=== PATIENT | female | born 1995 ===

== ENCOUNTER 2025-03-15 09:25 | Emergency (ER) | payer MEDICARE, MEDICAID, SELFPAY ==
[2025-03-15 09:43] VITALS: BP 145/67; PULSE 74; RESP 18; TEMP 36.6; O2SAT 100; BMI 38.7
[2025-03-15 10:16] LABS: MANUAL DIFF FLAG NO
[2025-03-15 10:22] LABS: Hematocrit 36.9 % (37.0-47.0); Hemoglobin 12.3 g/dl (12.0-16.0); Imm Gran Abs Auto 0.02 X10*3/uL (0.00-0.03); Imm Gran Pct Auto 0.3 % (0.0-0.4); Lymphocytes Absolute Auto 2.1 X10*3/uL (1.2-4.9); Mean Corpuscular HGB Conc 33.3 g/dl (31.0-35.0); Mean Corpuscular Hemoglobin 28.5 pg (27.0-33.0); Mean Corpuscular Volume 85.4 fL (80.0-98.0); NRBC Abs Auto 0.000 X10*3/uL (0.0-0.012); NRBC Pct Auto 0.0 /100WBC (0.0-0.2); Platelet Count 379 X10*3/uL (160-400); Red Blood Count 4.32 X10*6/uL (4.20-5.50); White Blood Count 7.8 X10*3/uL (4.8-10.8)
[2025-03-15 10:44] LABS: Anion Gap 12 (12-20); Blood Urea Nitrogen 10 mg/dL (9-16); Calcium 8.7 mg/dL (8.4-10.2); Carbon Dioxide 23 mmol/L (22-29); Chloride 108 mmol/L (96-108); Creatinine Clr Calc Pharmacy 158.4; Estimated Glomerular Filt Rate > 60; Potassium 3.8 mmol/L (3.3-5.1); Sodium 139 mmol/L (135-145)
--- OUTSIDE RECORDS SUMMARY | 2025-03-15 20:54 | XMS_ITS | Clinical Summary ---
Author Organization [facility] Address [address] [place] [address] Phone Care Team Providers Care Livestock Caretaker Name Role Phone Lindsey Jessica BRACE MAKER Primary Care Provide r Unavailable Allergies No known active allergies Medications cholecalciferol (VITAMIN D-3) 1,250 mcg (50,000 unit) capsule Take 1 Capsule by mouth once a week. 10/07/2022 Active escitalopram (LEXAPRO) 10 mg tablet Take 1 Tablet by mouth daily. Active WHEAT DEXTRIN ORAL Take 4 g by mouth daily. 02/24/2023 Active Immunizations Immunization Administration Dates Next Due Moderna SARS-CoV-2 COVID-19, mRNA, LNP-S, preservative free 05/01/2021,04/03/2021 Social History Tobacco Use Types Packs/Day Years Used Date Smoking Tobacco: Never Smokeless Tobacco: Never Alcohol Use Standard Drinks/Week Comments Never 0 (1 standard drink = 0.6 oz pur e alcohol) Comments Unknown Sex and Gender Information Value Date Recorded Sex Assigned at Not on file Legal Sex Female 11:14 PM EST Gender Identity Not on file Sexual Orientation Not on file Obstetrics History Para Term AB IAB SAB Ectopic Multiple Livin g Live Births 0 0 0 0 0 0 0 0 Comments Per Eileen Coyne. Last Filed Vital Signs Vital Sign Reading Time Taken Comments Blood Pressure 120/73 07/21/2023 9:11 AM EST Pulse 54 07/21/2023 9:11 AM EST Temperature - - Respiratory Rate - - Oxygen Saturation - - Inhaled Oxygen Concentration - - Weight 121 kg (267 lb) 08/27/2023 9:18 AM EDT Height 175.3 cm (5' 9 ) 07/21/2023 9:11 AM EST Body Mass Index 39.43 07/21/2023 9:11 AM EST Plan of Treatment Health Maintenance Due Date Last Done Comments DTaP,Tdap,and Td Vaccines (1 - Tdap) 10/31/2015 Hepatitis B Vaccines (1 of 3 - 19+ 3-dose series) 10/31/2015 Cervical Cancer Screening: P ap Smear 2017 HIV Screening 06/24/2023 Hepatitis C Screening 06/24/2023 Medicare Annual Wellness Visit 06/24/2023 Social Influencers of Health Screening 06/24/2023 HPV Vaccines (1 - 3-dose SCD M series) 10/31/2023 Depression Screening 05/26/2024 COVID-19 Vaccine (3 - 2024-2 6 season) 2025 05/01/2021, 04/03/2021 Influenza Vaccine (#1) 2025 Cholesterol Screening (Lipid Panel) 09/27/2027 09/26/2022 RSV Immunization Adult Patients (1 - 1-dose 75+ series) 10/31/2071 HIB Vaccines Aged Out No longer eligi ble based on patient's age to complete this topic Hepatitis A Vaccines Aged Out No long er eligible based on patient's age to complete this topic IPV Vaccines Aged Out No longer eligi ble based on patient's age to complete this topic MMR Vaccines Aged Out No longer eligi ble based on patient's age to complete this topic Meningococcal ACWY Vaccine Aged Out N o longer eligible based on patient's age to complete this topic Meningococcal B Vaccine Aged Out No l onger eligible based on patient's age to complete this topic Pneumococcal Vaccine: Pediatrics (0 to 5 Years) and At-Risk Patients (6 to 49 Years) Aged Out No longer eligible b ased on patient's age to complete this topic RSV Immunization Patients Under 20 months Aged Out No longer eligible b ased on patient's age to complete this topic Varicella Vaccines Aged Out No longer eligible based on patient's age to complete this topic Procedures Procedure Name Priority Date/Time Associated Diagnosis Comments LIPID PANEL Routine 09/26/2022 from Last 3 Months or Most Recently Relevant to Health Maintenance Results * Lipid panel (09/26/2022) LDL/HDL Ratio 3 0 - 4 Triglycerides 148 0 - 150 mg/dL Cholesterol 160 0 - 200 mg/dL HDL 57 >=40 mg/dL LDL Cholesterol 74 0 - 100 mg/dL Blood Venous blood specimen / Unknown Historical Provider LAB BLOOD ORDERABLES Justina l Result from Last 3 Months or Most Recently Relevant to Health Maintenance Insurance MEDICARE [place]ICAID - [place] Advance Directives Documents on File Type Date Recorded Patient Outside Sales Engineer Expl anation Health Care Decision (hx) 02/28/2023 HE ALTH CARE PROXY Care Teams Livestock Caretaker Relationship Specialty Start Date End Date Lindsey Jessica FNP [address] [place] [address] PCP - General 05/31/22
--- OUTSIDE RECORDS SUMMARY | 2025-03-15 20:54 | XMS_ITS | Data Portability ---
Author Organization [place] - [facility], [address] Address [address] [place] [address] Assessment No assessment recorded. Plan of Treatment Reminders Order Date Submit Date Provider Last Modified By Organization Details Last Modified Time Details Appointments None record ed. Lab None record ed. Referral None record ed. Procedures None record ed. Surgeries None record ed. Imaging None record ed. Medication Orders None record ed. Patient TargetsNo targets recorded. Patient InstructionsNo instructions recorded. Reason for Referral None Reported. Procedures Surgical History Date Name Laterality Status Provider Name and Address Organization Details Recorded Time OC- Physical completed POOJA N[facility] 08/21/2022 17:14:19 Imaging Results None recorded. Procedure Notes None recorded. Medical Equipment None Reported. Medications Name Sig Start Date Stop Date Status Note LastModified by Organization Details LastModified Time escitalopram 10 mg tablet TAKE 1 TABLET BY MOUTH EVERY DAY active Not Available Not Available No t Available Vitals None Recorded Social History None recorded. Functional Status None recorded. Mental Status None recorded. Family History Nothing Reported. Medical History No medical history recorded. Gynecological HistoryNo gynecological history recorded. Obstetrics History GPAL:G 0 P 0 0 0 0 Past Encounters Encounter ID Performer Location Encounter Start Date Encounter Closed Date Diagnosis/Indication Diagnosis SNOMED-CT Code Diagnosis ICD10 Code Diagnosis IMO Codes Diagnosis Note [id number] [address] [place] [address] 07/05/2021 18:10:44 07/05/2021 18:10:54 [id number] [place] [address] 05/24/2019 17:41:23 05/24/2019 18:40:07 [id number] [address] [facility] [address] [facility] [place] [address] 01/24/2021 14:16:13 01/24/2021 16:51:26 [id number] [facility] [address] [place] [address] 10/24/2021 18:51:03 10/24/2021 19:53:33 [id number] MAICO MARKS [address] [address] [place] [address] 08/21/2022 16:17:56 08/21/2022 18:01:08 History and physical examination, pre-employment 336307194 Z02.1 No medical contraindi cations for employment . Needs to wear hearing aides Health Concerns Section Related Observation LastModified by Organization Detai ls LastModified Time None Recorded Concern Status LastModified by Organization Details LastModified Time None Recorded Advance Directives Directive None Recorded Payers Insurance Date Sequence Insurance Name Policy Number Policy Yang Covered Member ID Yang Member ID Guarantor Name 08/21/2022 OC-ESCREEN [employer] ADH Na lior Jeffrey onado 08/21/2022 1 [facility] (MEDICAID HMO) [id number] Heidi Mccarty [id number] Heidi Jeffrey onado OBGyn Episode No OBEpisode recorded.
--- OUTSIDE RECORDS SUMMARY | 2025-03-15 20:54 | XMS_ITS | Clinical Summary ---
Author Organization [facility] Address [address] [place] [address] Care Team Providers Care Victim Advocate Name Role Phone Harmony Samayoa NP Primary Care Provider Source Comments PLEASE NOTE, if this patient is a minor, it may be UNLAWFUL to discuss sensitive information that is contained in these records (such as FAMILY PLANNING, MENTAL HEALTH or SUBSTANCE ABUSE) with the minor patient's parent or other person without the patient's specific authorization.[facility] Allergies Active Allergy Reactions Criticality Noted Date Comments Phentermine 03/03/2025 Medications divalproex (DEPAKOTE ER) 500 mg 24 hr tabletIndication s:Migraine headaches,Histor y of oppositional defiant disorder Take 1 Tablet by mouth once daily. 90 Tablet 1 025 Active norethindrone, contraceptive, (MICRONOR) 0.35 mg tabletIndication s:Encounter for surveillance of contraceptive pills Take 1 Tablet by mouth once daily. 90 Tablet 1 025 Active alcohol swabsIndications :Morbid obesity with BMI of 50.0-59.9, adult Use weekly. 30 Each 025 Active tirzepatide, weight loss, (ZEPBOUND) 2.5 mg/0.5 mL pnijIndications: Morbid obesity with BMI of 50.0-59.9, adult INJECT 2.5 MG SUBCUTANEOUSLY WEEKLY 2 mL 025 Active escitalopram (LEXAPRO) 10 mg tabletIndication s:Anxiety and depression Take 1 Tablet by mouth once daily 90 Tablet 1 022 2022 Discontinued(I neffective therapy) alcohol swabsIndications :Morbid obesity with BMI of 50.0-59.9, adult Use weekly. 30 Each 025 2024 Discontinued(R eorder (E-Cancel Not Sent)) phentermine (IONAMIN) 15 mg capsule Take 1 Capsule by mouth every morning. Max Daily Amount: 15 mg 30 Capsule 025 2024 Discontinued(T herapy completed/Not needed) tirzepatide, weight loss, (ZEPBOUND) 2.5 mg/0.5 mL pnijIndications: Morbid obesity with BMI of 50.0-59.9, adult Inject 2.5 mg into the skin once a week. 2 mL 025 2024 Discontinued Active Problems Problem Noted Date Diagnosed Date Chronic migraine with aura 01/18/2025 History of magnetic resonance imaging of brain 0 11/02/2024 Overview (11/02/2024): 11/02/24 Rayus Impression 1.No acute infarction, parenchymal signal abnormality, intracranial hemorrhage, or mass effect. 2.Nonspecific foci of mineralization along the falx without associated mass effect. Recommend further evaluation with contrast-enhanced brain MRI to assess for underlying meningioma. Morbid obesity with BMI of 50.0-59.9, adult 09/2022 Overview (07/01/2022): 07/01/22: Pt seen Hermes Weeks MD- discussed sleeve gastrectomy , referral placed to weight loss program and then will return. LAZARO placed. 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 Qualifies for hearing aides per pt. Poor vision 08/03/2020 Overview (10/29/2024): 10/26/24: Eye & Lasik No signs of disc edema to suggest papilledema. Congenital nuclear cataract . RTC in 1 year Chronic nonintractable headache 09/01/2018 Resolved Problems Problem Noted Date Diagnosed Date Resolved Date Immune to varicella 09/17/2018 08/08/19 21 Overview (09/17/2018): Date:09/01/2018 VARICELLA IGG ANTIBODY POSITIVE POSITIVE VARZ QUANT >165 INDEX 3167.0 Comment: >165 Index is considered to be consistent with Immunity. Overweight 09/16/2018 03/03/2025 Episode of recurrent major d epressive disorder 09/16/2018 08/07/2020 Acne vulgaris 09/16/2018 08/07/2020 Encounters Date Type Department Care Team Description 03/03/2025 3:00 PM EDT Telemedicine Visit [place] [address] [address] [place] [address] Harmony Samayoa NP 02/02/2025 2:40 PM EDT Telemedicine Visit [address] [address] Harmony Samayoa NP 01/26/2025 11:40 AM EDT Telemedicine Visit [address] [address] Harmony Samayoa NP 01/26/2025 Interim Notes [address] [address] Marjorie Ulrich 01/26/2025 Results Follow-Up [address] [address] Harmony Samayoa NP 01/18/2025 2:40 PM EDT Telemedicine Visit [address] [address] Harmony Samayoa NP from Last 3 Months Immunizations Immunization Administration Dates Next Due DTAP (Infanrix) 05/26/1998, 8,09/13/1997,01/20 Diphtheria, pertussis, tetan us, hepatitis B, Haemophilus Influenza Type b, (Pentavalent) - Non US 02/01/1998,11/21/1997,09/13/1997,01/20 Flu, Preservative Free 08/07/2020 HEP A, PED/ADOL, HISTORICAL 08/18/2012 HEP B, PED/ADOL (QHICWYD-Z-JCUZ/RECOMBIVAX-PEDS) 11/21/1997,09/13/1997,01/20/1997,11/29 HPV 9 (Gardasil) 08/07/2020,09/01/2018 HPV, QUADRIVALENT 04/22/2008,01/20/2008,11/20/19 08 INFLUENZA, SEASONAL, INJECTABLE 06/25/19 20,02/03/2014,03/30/2013,06/11 IPV (IPOL) 04/20/2008, 8,09/13/1997,01/20 Influenza, Whole 04/20/2008 MENINGOCOCCAL ACWY, UNSPECIFIED 02/03/2014,11/19 MMR (MMR II/Priorix) 04/20/2000,02/01/1998,10/30 Moderna COVID-19 Vaccine, re d cap blue label, 12+ Primary Series 05/01/2021,04/03/2021 TDAP 11/08/2019, 9,09/07/2014,10/15,11/20/2007 Varicella (Varivax), Live Vaccine 09/01/2018,,06/01/1998 Social History Tobacco Use Types Packs/Day Years Used Date Smoking Tobacco: Never Smokeless Tobacco: Never Tobacco Cessation:Counseling Given: Not Answered Alcohol Use Standard Drinks/Week Comments Yes 0 (1 standard drink = 0.6 oz pur e alcohol) Occasional Social Connections Answer Date Recorded Connectedness 0 02/11/2022 Financial Resource Strain Answer Date R ecorded Financial Resource Strain 0 2021 Stress Answer Date Recorded Stress 0 02/11/2022 Physical Activity Answer Date Recorded Physical Activity 0 01/16/2019 Food Insecurity Answer Date Recorded Food 0 02/11/2022 Transportation Needs Answer Date Record ed Transportation 0 02/11/2022 Housing Stability Answer Date Recorded Housing 0 02/11/2022 Safety and Environment Answer Date Remy rded How often does anyone, inclu ding family and friends, physically hurt you? 1 08/26/2024 Utilities Answer Date Recorded Utilities 0 02/11/2022 Employment Answer Date Recorded Employment 0 01/16/2019 Comments No Sex and Gender Information Value Date Recorded Sex Assigned at Female 09/01/2018 10:49 AM PDT Legal Sex Female 11:36 AM PDT Gender Identity Female 09/01/2018 10:49 AM PDT Sexual Orientation Straight 09/01/2018 10 :49 AM PDT Last Filed Vital Signs Vital Sign Reading Time Taken Comments Blood Pressure 118/60 11/04/2024 11:25 AM EDT Pulse 68 11/04/2024 11:25 AM EDT Temperature 36.2 C (97.1 F) 11/04/2024 11:25 AM EDT Respiratory Rate 18 11/04/2024 11:2 5 AM EDT Oxygen Saturation 99% 11/04/2024 11: 25 AM EDT Inhaled Oxygen Concentration - - Weight 115.5 kg (254 lb 9.6 oz) 025 11:25 AM EDT Height 165.1 cm (5' 5 ) 10/22/2024 10:0 8 AM EDT Body Mass Index 42.37 10/22/2024 10:08 AM EDT Plan of Treatment Upcoming Encounters Date Type Department Care Team (Late st Contact Info) Description 04/25/2025 1:20 PM EST [facility] [place] [address] [place] [address] Harmony Samayoa, [facility] [address] [place] [address] Health Maintenance Due Date Last Done Comments HPV Screening (self-collect) 1996 HPV Screening 1996 Medicare Annual Wellness Visit 2014 [id number] ( season) 2025 021, 04/03/2021 Imm-Influenza (#1) 2025 08/07/2020, 0 06/25/2019, 02/03/2014, Additional history exists Depression Monitoring 05/04/2025 02/02/2025 , 08/26/2024, 06/23/2024, Additional history exists Anxiety Screening 08/26/2025 08/26/2024 Relationship Safety Screening/Counseling 08/26/2025 08/26/2024, 02/11/2022, 08/07/2020 Tobacco Screening 03/03/2026 03/03/2025 Diabetes Screening 06/23/2027 06/23/2024, 0 06/23/2024, 09/01/2018, Additional history exists Lipid Screening 06/23/2027 06/23/2024, 09/01/2018 Cervical Cancer Screening 11/05/2027 Pap + HPV 11/05/2027 11/04/2024 Pap Smear 11/05/2027 11/04/2024, 06/27, 07/22/2019 Imm-DTaP/Tdap/Td (9 - Td or Tdap) 11/07/2029 11/08/2019, 09/01/2018, 09/07/2014, Additional history exists Imm-Hepatitis B Completed 02/01/1998, 10/25, 11/21/1997, Additional history exists HIV Screening Completed 09/01/2018 Imm-HPV Completed 08/07/2020, 040 01/2019, 04/22/2008, Additional history exists Alcohol and Drug Screen Completed 08/27/19, 09/24/2022, 02/11/2022, Additional history exists Hepatitis C Screening Completed 08/26/2024 Cervical Ablation/Cold-Knife Conization Discontinued Cervical Cryotherapy Discontinued Colposcopy Discontinued Excision/Leep Discontinued HPV Genotyping Discontinued Vaginal Pap Discontinued Vulvoscopy Discontinued Procedures Procedure Name Priority Date/Time Associated Diagnosis Comments HCG URINE MCKESSON (POCT) Routine 01/19/2025 1:58 PM EDT control counseling QUANTIFERON-TB GOLD PLUS Routine 01/19/2025 1:09 PM EDT Screening-pulmonary TB THINPREP IMAGING PAP, HPV MRNA E6/E7 RFLEX HPV 16,18/45 CT/NG Routine 11/04/2024 11:54 AM EDT Encounter for Papanicolaou smear of vagina as part of routine gynecological examination Encounter for screening for human papillomavirus (HPV) HEPATITIS C AB W/RFLX HCV RNA, QT, RT PCR Routine 08/26/2024 11:43 AM EDT Screening for viral disease COMPREHENSIVE METABOLIC PANEL Routine 06/23/2024 12:38 PM EST Bilateral hand pain LIPID PANEL Routine 06/23/2024 12:38 PM EST Bilateral hand pain ANTIBODY HIV-1&HIV-2 SINGLE RESULT Routine 09/01/2018 2:55 PM EDT Physical exam Screen for STD (sexually transmitted disease) from Last 3 Months or Most Recently Relevant to Health Maintenance Results * HCG URINE MCKESSON (POCT) Urine Routine (01/19/2025 1:58 PM EDT) URINE HCG NEGATIVE NEGATIVE [facility] POCT INTERNAL CONTROL PASS PASS [facility] POCT Urine Urine specimen / Unknown 01/19/2025 1:58 PM EDT us Harmony Samayoa [employer] LAB URINE AMBULATORY Final R esult [facility]- BACK OFFICE POCT * QUANTIFERON-TB GOLD PLUS Routine (01/19/2025 1:09 PM EDT) QUANTIFERON NEGATIVE NEGATIVE 01/22/2025 4:56 PM EDT [facility] NIL 0.01 IU/mL 01/22/2025 4:56 PM EDT [facility] MITOGEN-NIL 8.51 IU/mL 01/22/2025 4:56 PM EDT [facility] TB1-NIL 0.00 IU/mL 01/22/2025 4:56 PM EDT [facility] TB2-NIL 0.00 IU/mL 01/22/2025 4:56 PM EDT [facility] Blood Blood / Unknown 01/19/2025 1 :09 PM EDT 01/20/2025 6:58 PM EDT Narrative [facility] - 01/22/2025 4:56 PM EDT Negative test result. M. tuberculosis complex infection unlikely. . The Nil tube value reflects the background interferon gamma immune response of the patient's blood sample. This value has been subtracted from the patient's displayed TB and Mitogen results. . Lower than expected results with the Mitogen tube prevent false-negative Quantiferon readings by detecting a patient with a potential immune suppressive condition and/or suboptimal pre-analytical specimen handling. . The TB1 Antigen tube is coated with the M. tuberculosis-specific antigens designed to elicit responses from TB antigen primed CD4+ helper T-lymphocytes. . The TB2 Antigen tube is coated with the M. tuberculosis-specific antigens designed to elicit responses from TB antigen primed CD4+ helper and CD8+ cytotoxic T-lymphocytes. . For additional information, please refer to https://education.Antidot/faq/VLW623 (This link is being provided for informational/ educational purposes only.) . Harmony Samayoa NP LAB - BLOOD DRAW Final Resul t [facility] [address] [address], [facility] [address] [place] [address] * THINPREP IMAGING PAP, HPV MRNA E6/E7 RFLEX HPV 16,18/45 CT/NG Cervix- Endocervix Swab Routine (11/04/2024 11:54 AM EDT) CHLAMYDIA TRACHOMATIS RNA, TMA NOT DETECTED NOT DETECTED [facility] NEISSERIA GONORRHOEAE RNA, TMA NOT DETECTED NOT DETECTED [facility] COMMENT [facility] CLINICAL INFORMATION See Note [facility] Comment:None given LMP See Note [facility] Comment:10/19/2024 PREV. PAP See Note [facility] Comment:NONE GIVEN PREV. BX See Note [facility] Comment:NONE GIVEN SOURCE See Note [facility] Comment:Cervix, Endocervix STATEMENT OF ADEQUACY See Note [facility] Comment: Satisfactory for evaluation. Endocervical/transformation zone component present. INTERPRETATION/RESU LT See Note [facility] Comment: Cytology Results: Negative for intraepithelial lesion or malignancy. COMMENT See Note [facility] Comment: This Pap test has been evaluated with computer assisted technology. IMMIGRATION LAWYER See Note [email or web address] Comment: [place], CT(ASCP) CT screening location: [place] [address] COMMENT [facility] HPV MRNA E6/E7 Not Detected Not Detected [facility] Comment: Methodology: Field Sales Agent-Mediated Amplification This assay detects E6/E7 viral messenger RNA (mRNA) from 14 high-risk HPV types (16,18,31,33,35,39,45,51,52,56,58,59,66,68). Cervical sources are required for HPV testing. If a vaginal source from a patient who has had a total hysterectomy with removal of cervix was submitted, please contact the testing laboratory for alternative testing options. For additional information, please refer to http://[employer].Antidot/faq/HFN013r6 (This link if provided for information/ educational purposes only.) Swab Cervix uteri structure / Unknown 11/04/2024 11:54 AM EDT 11/05/2024 7:40 AM EDT Narrative [facility] - 11/08/2024 10:32 AM EDT EXPLANATORY NOTE: The Pap is a screening test for cervical cancer. It is not a diagnostic test and is subject to false negative and false positive results. It is most reliable when a satisfactory sample, regularly obtained, is submitted with relevant clinical findings and history, and when the Pap result is evaluated along with historic and current clinical information. The analytical performance characteristics of this assay, when used to test SurePath(TM) specimens have been determined by [facility] [employer]. The modifications have not been cleared or approved by the FDA. This assay has been validated pursuant to the CLIA regulations and is used for clinical purposes. For additional information, please refer to https://education.Antidot/faq/BAF227 (This link is being provided for information/ educational purposes only.) Kenroy Arrington MD LAB - PATHOLOGY AND CYTOLOGY AMB ULATORY Final Result [facility] [address] [address], [facility] [address] [address] * HEPATITIS C AB W/RFLX HCV RNA, QT, RT PCR (08/26/2024 11:43 AM EDT) [facility] HEPATITIS C ANTIBODY NON-REACT TRE NON-REACT TRE [facility] Comment: HCV antibody was non-reactive. There is no laboratory evidence of HCV infection. In most cases, no further action is required. However, if recent HCV exposure is suspected, a test for HCV RNA (test code 20445) is suggested. For additional information please refer to http://[employer].Antidot/faq/PCY65i4 (This link is being provided for informational/ educational purposes only.) Blood Blood / Unknown 08/26/2024 1 1:43 AM EDT 08/26/2024 11:44 AM EDT us Edil Antunez PA-C LAB - BLOOD DRAW Final Resul t [facility] [address] [address], [facility] [address] [place] [address] * LIPID PANEL (06/23/2024 12:38 PM EST) [facility] CHOLESTEROL, TOTAL 140 <200 mg/dL [facility] HDL CHOLESTEROL 61 > OR = 50 mg/dL [facility] TRIGLYCERIDES 51 <150 mg/dL [facility] LDL-CHOLESTEROL 66 99 mg/dL (calc) [facility] Comment: Reference range: <100 Desirable range <100 mg/dL for primary prevention; <70 mg/dL for patients with CHD or diabetic patients with > or = 2 CHD risk factors. LDL-C is now calculated using the Chiki-Elizabeth calculation, which is a validated novel method providing better accuracy than the Friedewald equation in the estimation of LDL-C. Chiki WHITTEN et al. HU. 2013;310(19): 3390-2514 (http://education.Brainloop/faq/UEY627) CHOL/HDLC RATIO 2.3 <5.0 (calc) [facility] NON-HDL CHOLESTEROL 79 <130 mg/dL (calc) [facility] Comment: For patients with diabetes plus 1 major ASCVD risk factor, treating to a non-HDL-C goal of <100 mg/dL (LDL-C of <70 mg/dL) is considered a therapeutic option. Blood Blood / Unknown 06/23/2024 1 2:38 PM EST 06/23/2024 12:38 PM EST Narrative [facility] - 06/24/2024 4:30 AM EST FASTING:YES us Harmony Samayoa NP LAB - BLOOD DRAW Final Resul t [facility] [address] [address], [facility] [address] [place] [address] * COMPREHENSIVE METABOLIC PANEL (06/23/2024 12:38 PM EST) GLUCOSE 76 65 - 99 mg/dL [facility] Comment: Fasting reference interval UREA NITROGEN (BUN) 12 7 - 25 mg/dL [facility] CREATININE (blood) 0.62 0.50 - 0.96 mg/dL [facility] EGFR 125 > OR = 60 mL/min/1. 73m2 [facility] BUN/CREATININE RATIO SEE NOTE: [facility] Comment: Not Reported: BUN and Creatinine are within reference range. SODIUM 137 135 - 146 mmol/L [facility] POTASSIUM 4.5 3.5 - 5.3 mmol/L [facility] CHLORIDE 103 98 - 110 mmol/L [facility] CARBON DIOXIDE 28 20 - 32 mmol/L [facility] CALCIUM 9.1 8.6 - 10.2 mg/dL [facility] PROTEIN, TOTAL 7.1 6.1 - 8.1 g/dL [facility] ALBUMIN 4.4 3.6 - 5.1 g/dL [facility] GLOBULIN 2.7 1.9 - 3.7 g/dL (calc) [facility] ALBUMIN/GLOBULI N RATIO 1.6 1.0 - 2.5 (calc) [facility] BILIRUBIN, TOTAL 0.7 0.2 - 1.2 mg/dL [facility] ALKALINE PHOSPHATASE 57 31 - 125 U/L [facility] AST 12 10 - 30 U/L [facility] ALT 9 6 - 29 U/L [facility] Blood Blood / Unknown 06/23/2024 1 2:38 PM EST 06/23/2024 12:38 PM EST Narrative [facility] - 06/24/2024 4:30 AM EST FASTING:YES us Harmony Samayoa [employer] LAB - BLOOD DRAW Edited Resu lt - Final [facility] [address] [address], [facility] [address] [address] * HIV-1 & HIV-2 ANTIBODIES (09/01/2018 2:55 PM EDT) [facility] HIV 1 AND 2 ANTIBODY SCREEN NEGATIVE NEGATIVE [facility] Comment: This assay is a 4th generation assay allowing for earlier detection of HIV infection by detecting the presence of the HIV-1 p24 antigen as well as the traditional antibodies to HIV type 1 (including group O) and type 2. Use of a 4th generation assay is the current CDC recommendation for HIV screening. Blood specimen (specimen) Blood / Unknown 09/01/2018 2:55 PM EDT 09/01/2018 3:12 PM EDT [facility] - 09/01/2018 8:00 PM EDT [employer], a member of [address] [address] Manager Simulation - Kelly Murray MD [place] [id number] ORD# [id number] us Jennifer Griffiths [employer] LAB - BLOOD DRAW Final Resu lt Performing Organization Address City/[facility]/ZIP Co de Phone Number [facility] [employer] [address], from Last 3 Months or Most Recently Relevant to Health Maintenance [place] Care Teams Victim Advocate Relationship Specialty Start Date End Date Harmony Samayoa NP [address] [place] [address] PCP - General Internal Medicine 06/02/23
== END 2025-03-15 16:09 | disposition left against medical advice (07) ==
PROVIDERS: Emergency Provider Emergency Medicine; PCP Dentist General Practice
DX: R20.0 Anesthesia of skin (principal); R42 Dizziness and giddiness
CPT/HCPCS: 36415; 80048; 85025; 99281